=== PATIENT | female | born 1990 | race Caucasian/White ===

== ENCOUNTER 2019-06-09 17:41 | Emergency (ER) | payer OTHER ==
--- NOTE | 2019-06-09 18:27 | ERPHSYRPT ---
- History of Present Illness Time Seen by Provider: 06/09/19 18:05 Source: patient Patient Subjective Stated Complaint: Pt states "I was working over at [facility] and I put my hand down and a pen cap cut me." Triage Nursing Assessment: Pt prented alert and oriented X 3, skin pwd Pt ambulates with an upright steady gait, able to speak in clear full sentnces. PT has small avulsion noted to right little finger. Physician History: 29 y/o right handed white female who is 38 weeks presents with right 5th digit laceration from a plastic cap of a pen. she states finger was pinched. pts tetanus utd Timing/Duration: today Quality: painful Severity: mild Location: hands (right 5th digit) Allergies/Adverse Reactions: codeine Allergy (Severe, Verified 06/09/19 17:54) Hives Home Medications: No Reportable Medications [No Reported Medications] 06/09/19 [History] Hx Tetanus, Diphtheria Vaccination/Date Given: Yes Hx Influenza Vaccination/Date Given: No Hx Pneumococcal Vaccination/Date Given: No Immunizations Up to Date: Yes - Review of Systems Constitutional: No Symptoms Eyes: No Symptoms Ears, Nose, & Throat: No Symptoms Respiratory: No Symptoms Cardiac: No Symptoms Abdominal/Gastrointestinal: No Symptoms Genitourinary Symptoms: No Symptoms Musculoskeletal: No Symptoms Skin: Other (fingertip lac) Neurological: No Symptoms Psychological: No Symptoms Endocrine: No Symptoms Hematologic/Lymphatic: No Symptoms Immunological/Allergic: No Symptoms All Other Systems: Reviewed and Negative - Past Medical History Pertinent Past Medical History: No Neurological History: No Pertinent History ENT History: No Pertinent History Cardiac History: No Pertinent History Respiratory History: No Pertinent History Endocrine Medical History: No Pertinent History Musculoskeletal History: No Pertinent History GI Medical History: No Pertinent History History: No Pertinent History Psycho-Social History: No Pertinent History Female Reproductive Disorders: No Pertinent History - Past Surgical History Past Surgical History: No Neuro Surgical History: No Pertinent History Cardiac: No Pertinent History Respiratory: No Pertinent History Gastrointestinal: No Pertinent History Genitourinary: No Pertinent History Musculoskeletal: No Pertinent History Female Surgical History: No Pertinent History - Social History Smoking Status: Former smoker Exposure to second hand smoke: No Drug Use: none Patient Lives Alone: No - Female History Hx Last Menstrual Period: 09/18/2018 Hx Now: Yes Expected Date of Delivery: 06/27/19 - Nursing Vital Signs Nursing Vital Signs: Initial Vital Signs Temperature 97.5 F 06/09/19 17:46 Pulse Rate 65 06/09/19 17:46 Respiratory Rate 20 06/09/19 17:46 Blood Pressure 144/87 06/09/19 17:46 O2 Sat by Pulse Oximetry 97 06/09/19 17:46 Pain Scale Pain Intensity 8 - Physical Exam General Appearance: no apparent distress, alert, anxiety Eye Exam: PERRL/EOMI, eyes nml inspection Ears, Nose, Throat Exam: normal ENT inspection, moist mucous membranes Neck Exam: normal inspection, non-tender, supple, full range of motion Respiratory Exam: airway intact, No chest tenderness, No respiratory distress Gastrointestinal/Abdomen Exam: No tenderness Pelvic Exam: not done Rectal Exam: not done Extremity Exam: normal range of motion, pelvis stable Neurologic Exam: alert, oriented x 3, cooperative, track hoe operator II-XII nml as tested, normal mood/affect, nml cerebellar function, nml station & gait Skin Exam: laceration (2mm width and 4mm axial length skin flap distal tip palmar aspect 5th digit) Lymphatic Exam: No adenopathy SpO2 Interpretation: normal SpO2: 97 O2 Delivery: Room Air Procedures - Laceration/Wound Repair Right Volar Finger Wound Location: Right, hand (5th digit palmar) Wound Length (cm): 0.4 Wound's Depth, Shape: superficial, linear, flap Wound Explored: no foreign body noted Hibiclens Prep: Yes Wound Repaired With: Steri-strips - Course Nursing assessment & vital signs reviewed: Yes - Progress Progress: improved Counseled pt/family regarding: diagnosis - Departure Departure Disposition: Home Clinical Impression: Finger laceration Condition: Stable Critical Care Time: No Additional Instructions: keep area dry for 24 hours. after 24 hours, may wash daily. leave steristrips in place until they fall off.
[2019-06-09 18:32] VITALS: BP 136/91; PULSE 68; O2SAT 99
== END 2019-06-09 18:35 | disposition home or self-care (01) ==
LOC: ED 17:41
DX: S61.216A Laceration without foreign body of right little finger without damage to nail, initial encounter (principal); W46.0XXA Contact with hypodermic needle, initial encounter; Y92.531 Health care provider office as the place of occurrence of the external cause; Z33.1 Pregnant state, incidental
CPT/HCPCS: 99283